=== PATIENT | male | born 1980 | race Caucasian/White ===

== ENCOUNTER 2016-08-19 16:40 | Emergency (ER) | payer OTHER ==
[~2016-08-19] VITALS: Ht 190.5 cm; Wt 112.0 kg
[~2016-08-19 16:40] MED LIST: COLACE100 MG PO; DEPAKOTE ER500 MG PO; DEPAKOTE250 MG PO; DEPAKOTE500 MG PO; ENDOCET 5-3251 EACH PO; FLAGYL500 MG PO; FLEET ENEMA-AD118 ML PR; FLEXERIL10 MG PO; HYDROCODON-ACE1 EAC7 PO; IBUPROFEN800 MG PO; LIDOCREAM15 GM TP; LIDODERM 5% P1 PATCH TD; MILK OF MAGN PO; MOTRIN800 MG PO; ORAP2 MG PO; OXECTA5 MG PO; PERCOCET 10/1 TABLET PO; PERCOCET 5/31 TABLET PO; RELAFEN750 MG PO; SKELAXIN800 MG PO; TAMIFLU75 MG PO; TYLENOL WITH C1 EACH; VIMPAT150 MG PO; VIMPAT200 MG PO; VITAMIN D2000 UNIT PO; ZOFRAN ODT4 MG PO; ZOFRAN4 MG PO; [UNRECOGNIZED DRUG - CODE] PO
[2016-08-19 17:17] LABS: HEMATOCRIT 42.2 % (38.0-50.0); MCH 31.7 PG (29.0-34.0); MCHC 34.4 G/DL (30.0-36.0); MCV 92.3 FL (86-99); MEAN PLAT.VOLUME 11.8 uM^3 (9.0-12.4); PLATELET COUNT 178 K/uL (156-360); RBC DIS.WIDTH-CV 12.1 % (11.8-14.6); RBC DIS.WIDTH-SD 39.9 % (39-53); RED BLOOD COUNT 4.57 M/uL (4.00-5.50); WHITE BLOOD COUNT 8.6 K/uL (4.1-10.2)
[2016-08-19 17:29] LABS: CHLORIDE 106 mEq/L (99-109); POTASSIUM 4.2 mEq/L (3.7-5.4); SODIUM 143 mEq/L (136-147)
[2016-08-19 17:32] LABS: GLUCOSE 65 mg/dL (70-99)
[2016-08-19 17:33] LABS: ANION GAP 10 MEQ/L (2-14)
[2016-08-19 17:34] LABS: TOTAL BILIRUBIN 0.5 mg/dL (0.0-1.0)
[2016-08-19 17:34] LABS: ADD MIUA? NO; BILIRUBIN NEGATIVE; BLOOD NEGATIVE; COLOR YELLOW ((YELLOW)); GLUCOSE (STRIP) NEGATIVE; KETONES 5; LEUKOCYTES NEGATIVE; NITRITE NEGATIVE; PROTEIN (STRIP) NEGATIVE; SPECIFIC GRAVITY 1.018 (1.000-1.030); UCUL ADDED? NO; UROBILINOGEN 0.2 MG/DL (0.2-1.0)
[2016-08-19 17:35] LABS: ALKALINE PHOSPHATASE 53 IU/L (3-129)
[2016-08-19 17:36] LABS: GFR ESTIMATE (CALCULATED) > 59 mL/min/
[2016-08-19 17:37] LABS: DIRECT BILIRUBIN 0.2 mg/dL (0.0-0.3); UREA NITROGEN (BUN) 21 mg/dL (9-23)
[2016-08-19 17:39] LABS: LIPASE 19 U/L (1.0-51.0)
[2016-08-19] MEDS ORDERED: LEVAQUIN750 MG PO (21:09)
[2016-08-19] MEDS ORDERED: MIRALAX255 GM PO (21:09)
[2016-08-19 21:33] VITALS: BP 108/70
== END 2016-08-19 21:33 | disposition home or self-care (01) ==
LOC: EME → EDBD 16:40 → EME 21:33
PROVIDERS: Emergency Medicine
DX: J18.9 Pneumonia, unspecified organism (principal); R10.9 Unspecified abdominal pain; G80.9 Cerebral palsy, unspecified; F95.2 Tourette's disorder; G40.909 Epilepsy, unspecified, not intractable, without status epilepticus
CPT/HCPCS: 74177; 80048; 80076; 81003; 83690; 85027; 99281; 99285; J2270; J2405; J7030